=== PATIENT | female | born 1955 | race Caucasian/White ===

== ENCOUNTER → 2017-08-20 | Outpatient (CLI) | payer OTHER ==
[~2017-08-20] MED LIST: ADAL40KI SQ; ARIP30TA4 PO; ARIP5TAB13 PO; BUSP15TA PO; DEXL60CA2 PO; FOLI1TAB16 PO; LEVO100T5 PO; METF500T4 PO; METH2.5T25 PO; MONT10TA9 PO; QUET50TA PO
--- NOTE | 2017-08-21 08:24 | RAD ---
DATE: 08/20/2017 EXAM: DIGITAL SCREEN BILAT W/CAD HISTORY: Routine screening COMPARISON: 08/09/2016 This study was interpreted with the benefit of Computerized Aided Detection (CAD). The breast parenchyma shows scattered fibroglandular densities. Breast parenchyma level B. FINDINGS: No new or enlarging breast densities are seen. Scattered benign type calcifications are present. No suspicious microcalcifications have developed. IMPRESSION: Stable mammograms without evidence of malignancy. BI-RADS CATEGORY: 2 BENIGN FINDING(S) RECOMMENDED FOLLOW-UP: 12M 12 MONTH FOLLOW-UP PQRS compliance statement: Patient information was entered into a reminder system with a target due date for the next mammogram. Mammography is a sensitive method for finding small breast cancers, but it does not detect them all and is not a substitute for careful clinical examination. A negative mammogram does not negate a clinically suspicious finding and should not result in delay in biopsying a clinically suspicious abnormality. "Our facility is accredited by the [employer] Mammography Program."
== END | disposition home or self-care (01) ==
LOC: MAMMO 13:42
PROVIDERS: ATTEND Internal Medicine
DX: Z12.31 Encounter for screening mammogram for malignant neoplasm of breast (principal)
CPT/HCPCS: G0202; 77067

== ENCOUNTER → 2017-08-28 | Day surgery (SDC) | payer OTHER ==
[~2017-08-28] MED LIST changes: +ASEN10TA9 SL; +ATOR10TA60 PO; +HYDROmorphone 2 MG/ML VIAL IV PRN; +IV RINGERS,LACTATED 1000ML 1,000 ML IV SCH; +LIDOCAINE 1% PF 2 ML VIAL. ID PRN; +LORA0.5T PO; +LOSA100T6 PO; +MORPHINE SULFATE 2 MG/ML DISP.SYRIN. IV PRN; +ONDANSETRON PF 4 MG/2 ML VIAL. IV PRN; +PROCHLORPERAZINE 10 MG/2 ML VIAL. IV PRN; +PROPOFOL 20 ML IV ONE; +fentaNYL PF VIAL 100 MCG/2 ML VIAL IV PRN
--- NOTE | 2017-08-28 10:23 | PDOC1 ---
HISTORY & PHYSICAL H&P Atiya Reinoso [id number] 1955 07/17/2017 03:40 PM 10/22 [employer] [facility], [facility] OUR PATIENTS COME FIRST [address] [place], [place] [id number] Ph. [phone] Patient: Atiya Reinoso Date of : 1955 Date: 07/17/2017 3:40 PM Visit Type: Consult This 61 year old female presents for H/o colorectal polyp. History of Present Illness: 1. H/o colorectal polyp Prior screening: colonoscopy. Denies risk factors. Pertinent negatives include abdominal pain, change in bowel habits, change in stool caliber, constipation, decreased appetite, diarrhea, melena, nausea, rectal bleeding, vomiting, weight gain and weight loss. Additional information: No family history of colon cancer, No family history of Crohn's/colitis, No NSAID/ASA use and Last colonoscopy 4 yrs ago and had adenomatous polyps. INTAKE COMMENTS: Intake Comments: Nurse Note: the pt is here today to schedule a colonoscopy, she had colon polyps in 2013. PROBLEM LIST: Problem Description Onset Date Polyarthralgia 02/01/2016 Fatty liver 02/01/2016 Abnormal LFTs 12/01/2015 Diabetes mellitus 08/12/2012 Medicare advantage coverage 09/23/2013 Myalgia/myositis - multiple 06/15/2009 Asthma 08/12/2012 Psoriasis with arthropathy 06/15/2009 Psoriasis 06/15/2009 Low back pain 06/15/2009 Mononeuritis 06/15/2009 Tinnitus 06/15/2009 Disorder of hair AND/OR hair follicle 06/15/2009 Leukopenia 06/15/2009 Localized, primary osteoarthritis of the pelvic region and thigh 06/15/2009 Hyperlipidemia 06/15/2009 Acute bacterial sinusitis 12/01/2015 Elevated LFTs 12/01/2015 Midline low back pain without sciatica 10/05/2015 Tinea cruris 09/21/2014 History of colon polyps 04/04/2016 Gastroesophageal reflux disease 04/17/2012 Hypothyroidism 04/17/2012 Peptic ulcer 11/28/2013 Steatohepatitis 01/25/2016 PAST MEDICAL/SURGICAL HISTORY (Detailed) Disease/disorder Onset Date Management Date Comments Arthrocentesis of the left knee joint Anxiety Asthma Colonic polyps colonoscopy with biopsy 01/09/2014 Diabetes eardrum rupture ear surgery(left) 1995 Esophagitis Extensive diverticulosis Gastritis EGD with biopsy 01/09/2014 hiatal hernia Hyperlipidemia Hypertension nervous breakdowns Panic attacks Psoriasis Segmental colitis DIAGNOSTICS HISTORY: Test Ordered Interpretation Result completed UPPER GI ENDOSCOPY, BIOPSY 12/01/2013 Imp: Hiatal hernia. Ulceration, ileocecal valve. Antral erosive gastritis. Antral erosions. BX: Esophagitis. Reactive gastropathy. 01/09/2014 COLONOSCOPY AND BIOPSY 12/01/2013 Imp: Polyps, (bx). Extensive diverticulosis. Segmental colitis. BX: Acute ileitis. Hyperplastic polyp. Tubular adenoma. 01/09 Test Ordered Ordering Comments Modifier UPPER GI ENDOSCOPY, BIOPSY 12/01/2013 COLONOSCOPY AND BIOPSY 12/01/2013 Medications (Active): Started Medication Directions Instruction Stopped 09/13/2010 ALBUTEROL SULFATE 06/29/2017 ATORVASTATIN 10 MG TABLET TAKE 1 TABLET EVERY DAY 12/18/2016 BACTROBAN 2% CREAM APPLY A SMALL AMOUNT TO AFFECTED AREA 3 TIMES A DAY FOR 10 DAYS buspirone 15 mg tablet take 1 tablet by oral route 3 times every day 04/10/2017 [facility] VITAMIN E 400 UNIT CAPSULE TAKE ONE CAPSULE BY MOUTH TWICE A DAY 06/29/[address] 60 MG CAPSULE TAKE 1 CAPSULE BY MOUTH EVERY DAY 06/12/2017 Humira Pen 40 mg/0.8 mL subcutaneous INJECT 1 PEN (40MG) SUBCUTANEOUSLY EVERY OTHER WEEK 07/28/2016 hydrochlorothiazide 12.5 mg tablet take 1 tablet by oral route every day 06/01/2017 LEVOTHYROXINE 100 MCG TABLET TAKE 1 TABLET BY MOUTH EVERY DAY lorazepam 0.5 mg tablet take 1 tablet by ORAL route once as needed 07/09/2017 LOSARTAN POTASSIUM 100 MG TAB TAKE 1 TABLET BY MOUTH DAILY 03/30/2017 METFORMIN HCL 500 MG TABLET TAKE 1 TABLET BY MOUTH TWICE A DAY WITH MORNING AND EVENING MEALS 06/29/2017 MONTELUKAST SOD 10 MG TABLET TAKE 1 TABLET BY MOUTH EVERY DAY IN THE EVENING 09/21/2016 naproxen 500 mg tablet take 1 tablet by oral route 2 times every day with food 06/13/2016 [employer] Ultra Test strips CHECK BLOOD SUGARS ONCE A DAY FOR DIABETES (E11.9) Saphris [address] 1 tablet (10MG) by sublingual route 2 times every day under the tongue and allow to dissolve 06/12/2017 tizanidine 4 mg tablet take 1 tablet by oral route every 8 hours as needed not to exceed 3 doses in 24 hours 06/12/2017 tramadol 50 mg tablet take 1 tablet (50MG) by oral route every 4 - 6 hours as needed 10/05/2016 VENTOLIN HFA 90 MCG INHALER INHALE 2 PUFF BY INHALATION ROUTE EVERY 4 HOURS NEEDED Allergies: Ingredient Reaction Medication Name Comment PENICILLIN TETRACYCLINE Gastric Distress REVIEW OF SYSTEMS System Neg/Pos Details Constitutional Negative Chills, fever, malaise, weight gain and weight loss. ENMT Negative Sore throat. Eyes Negative Double vision. Respiratory Negative Dyspnea and wheezing. Cardio Negative Chest pain and irregular heartbeat/palpitations. GI Positive See HPI. GI Negative Abdominal pain, change in bowel habits, change in stool caliber, constipation, decreased appetite, diarrhea, melena, nausea, see HPI, rectal bleeding and vomiting. Negative Dysuria and hematuria. Endocrine Negative Cold intolerance and heat intolerance. Psych Negative Anxiety. Integumentary Negative Hives and rash. MS Negative Joint pain. Andrea/Lymph Negative Easy bleeding and easy bruising. Allergic/Immuno Negative Food allergies. VITAL SIGNS Time BP mm/Hg Pulse /min Resp /min Temp F Ht ft Ht in Ht cm Wt lb Wt kg BMI kg/ m2 BSA m2 O2 Sat% 3:42 PM 128/80 85 98.1 5.0 6.00 167.64 201.20 91.263 32.47 95 Time Measured by 3:42 PM Chelsea Sykes PHYSICAL EXAM: Exam Findings Details Constitutional Normal Well developed. Eyes Normal Conjunctiva - Right: Normal, Left: Normal. Sclera - Right: Normal, Left: Normal. Nasopharynx Normal Lips/teeth/gums - Normal. Neck Exam Normal Inspection - Normal. Thyroid gland - Normal. Respiratory Normal Inspection - Normal. Auscultation - Normal. Cardiovascular Normal Regular rate and rhythm. No murmurs, gallops, or rubs. Vascular Normal Pulses - Carotids: Normal, Femoral: Normal, Dorsalis pedis: Normal. Abdomen Normal Inspection - Normal. Anterior palpation - No guarding. No abdominal tenderness. No hepatic enlargement. No splenic enlargement. No hernia. No Ascites. Skin Normal Inspection - Normal. Extremity Normal No edema. Psychiatric Normal Oriented to time, place, person, and situation. Appropriate mood and effect. Assessment/Plan # Detail Type Description 1. Assessment history of colonic polyps (Z83.71). Patient Plan schedule colonoscopy at Plan Orders Further diagnostic evaluations ordered today include(s) Colonoscopy to be performed today. She is to schedule a follow-up visit with Lachelle Harris MD upon completion of work-up Clinical Guidelines (Reviewed, no changes:Last detailed document date:) Electronically signed by: Lachelle Harris MD 07/17/2017 03:51 PM Document generated by: Lachelle Harris 07/17/2017 03:51 PM Teressa Gavin MD, Family Practice; Joon Alegria MD Internal Medicine; Faisal Buck MD, Internal Medicine; Mo Harris MD Internal Medicine; Lachelle Harris MD, Gastroenterology; Baljinder Youngblood MD, Rheumatology, S. Raul Smith, Physical Medicine/Rehab JSuzanne Cartagena APRN ------ 08/28/17 Patient seen and examined. No change in H&P. LACHELLE HARRIS MD, PRAVIN N MD Aug 28, 2017 10:23
[2017-08-28 11:49] VITALS: BP 178/85
== END | disposition home or self-care (01) ==
LOC: ENDOS 09:35
PROVIDERS: ATTEND Internal Medicine Gastroenterology
DX: Z09 Encounter for follow-up examination after completed treatment for conditions other than malignant neoplasm (principal); Z87.19 Personal history of other diseases of the digestive system; K57.30 Diverticulosis of large intestine without perforation or abscess without bleeding; E11.9 Type 2 diabetes mellitus without complications; E03.9 Hypothyroidism, unspecified; F41.9 Anxiety disorder, unspecified; Z87.39 Personal history of other diseases of the musculoskeletal system and connective tissue; Z86.39 Personal history of other endocrine, nutritional and metabolic disease; Z88.1 Allergy status to other antibiotic agents; Z88.0 Allergy status to penicillin
CPT/HCPCS: 45378; J2704

== ENCOUNTER 2018-06-13 13:56 | Emergency (ER) | payer OTHER ==
[~2018-06-13] VITALS: Ht 167.6 cm; Wt 93.0 kg
[~2018-06-13 13:56] MED LIST changes: -HYDROmorphone 2 MG/ML VIAL IV PRN; -IV RINGERS,LACTATED 1000ML 1,000 ML IV SCH; -LIDOCAINE 1% PF 2 ML VIAL. ID PRN; -METF500T4 PO; +METF500T5 PO; -MORPHINE SULFATE 2 MG/ML DISP.SYRIN. IV PRN; -ONDANSETRON PF 4 MG/2 ML VIAL. IV PRN; -PROCHLORPERAZINE 10 MG/2 ML VIAL. IV PRN; -PROPOFOL 20 ML IV ONE; -fentaNYL PF VIAL 100 MCG/2 ML VIAL IV PRN
[2018-06-13 14:04] VITALS: BP 142/87
--- NOTE | 2018-06-13 14:38 | PHYS DOC ---
Past Medical History Past Medical History: Anxiety, Asthma, Bipolar, Diabetes-Type II, Hypertension , Schizophrenia, Other Additional Past Medical Histor: Bilateral Cataracts, Stage 3 OA Past Surgical History: Other Additional Past Surgical Histo: Left ear drum repair Alcohol Use: None Drug Use: None Adult General Chief Complaint Chief Complaint: LOWER EXT PAIN HPI HPI 62-year-old female presents to ER with complaints of increased left knee pain since yesterday. Patient has chronic bilateral knee pain due to osteoarthritis and was seen by her primary care physician last week. Patient reports yesterday she felt a pop in her knee and has had increased pain and feels her knee is more swollen today. Patient reports she took 2 tramadol this morning along with a muscle relaxer. Patient reports she's had minimal relief in pain with last tramadol approximately 30 minutes prior to arrival to ER. Patient denies numbness or tingling or discoloration in bilateral lower extremities. Pt denies any recent falls/injury. Patient reports she has 13 steps at home with her bathroom upstairs. She reports she has been able to go up and down the steps but does have more pain with walking them. Patient was seen with steady/unassisted gait from triage to room see in the express area of the ER. Review of Systems Review of Systems Constitutional: Denies fever or chills [] Eyes: Denies change in visual acuity, redness, or eye pain [] HENT: Denies nasal congestion or sore throat [] Respiratory: Denies cough or shortness of breath [] Cardiovascular: Denies CP/palpitations GI: Denies abdominal pain, nausea, vomiting, bloody stools or diarrhea [] : Denies dysuria or hematuria [] Musculoskeletal: Reports chronic lower back pain- no acute change in change in bowel/urinary patterns. Reports chronic bilat. knee pain- no acute change rt knee. Reports increased lt knee pain with concerns knee is swollen since yesterday. Denies numbness/tingling. Denies use of walker/cane for walking. Integument: Denies rash or skin lesions [] Neurologic: Denies headache, focal weakness or sensory changes [] All other systems were reviewed and found to be within normal limits, except as documented in this note. Current Medications Current Medications Current Medications Medications (Trade) Dose Ordered Sig/Arthur Start Time Stop Time Status Last Admin Dose Admin Ibuprofen (Motrin) 600 mg 1X ONCE 8/23/18 15:00 06/13/18 15:01 DC 06/13/18 15:10 600 MG Allergies Allergies Allergies Coded Allergies Type Severity Reaction Last Updated Verified Penicillins Allergy Intermediate Hives 08/28/17 Yes tetracycline Allergy Intermediate Unknown 08/28/17 Yes Physical Exam Physical Exam Constitutional: Well developed, well nourished, no acute distress, non-toxic appearance. [] HENT: Normocephalic, atraumatic, bilateral ears normal, mucous membranes pink/ moist no oral exudates, nose normal. [] Eyes: PERRLA, conjunctiva normal, no discharge. [] Neck: Normal range of motion, no tenderness, supple, no stridor. [] Cardiovascular:Heart rate regular rhythm, no murmur [] Lungs & Thorax: Bilateral breath sounds clear to auscultation [] Abdomen: Bowel sounds normal, soft, no tenderness, no masses, no pulsatile masses. [] Skin: Warm, dry, no erythema, no rash. [] Back: Tender to palp across lower back with no focal area- chronic per pt with no acute change, no CVA tenderness. [] Extremities: Diffuse tenderness on palp. bilat anterior patella- no swelling/ discoloration/palp. deformity, no cyanosis, no clubbing, ROM intact, no edema. [ ] Neurologic: Alert and oriented X 3, normal motor function, normal sensory function, no focal deficits noted. Steady/unassisted gait Psychologic: Affect normal, judgement normal, mood normal. [] Current Patient Data Vital Signs Vital Signs Date Time Temp Pulse Resp B/P (MAP) Pulse Ox O2 Delivery O2 Flow Rate FiO2 06/13/18 14:04 98.8 76 16 142/87 (105) 95 Room Air 98.8 EKG EKG [] Radiology/Procedures Radiology/Procedures EXAM: Left knee, 3 views. HISTORY: Pain. COMPARISON: None. FINDINGS: 3 views of the left knee are obtained. There is no fracture, dislocation or subluxation. There is mild tricompartmental spurring. IMPRESSION: Mild tricompartmental osteoarthritis of the left knee. Electronically signed by: Tatiana Escobar MD (06/13/2018 3:31 PM) [place] [id number] DICTATED and SIGNED BY: TATIANA ESCOBAR MD DATE: 06/13/18 1531 Course & Med Decision Making Course & Med Decision Making Pertinent Imaging studies reviewed. (See chart for details) On initial exam pt reports rt knee pain is chronic with no acute changes and with pt having previous xrays on rt knee no imaging ordered. 1545: Discussed xray results of lt knee with pt and her brother with findings consistent with pt's previous dx of osteoarthritis. She remains neuro/vascular intact in bilat. LEs with no change in skin condition. She is in no visible distress at this time. Discussed plans for carlos alberto wrap to bilat. knees for support. RICE acronym discussed. Pt to continue home meds as Rx'd including her Tramadol and muscle relaxers. Discussed f/u with orthopedics for further eval/ care and pt plans to call her PCP to find out their recommendations. Education provided on s&s to return to ER for and discharge instructions were discussed. Pt has steady/unassisted gait. She is agreeable with discharge plan as discussed. Dragon Disclaimer Dragon Disclaimer This electronic medical record was generated, in whole or in part, using a voice recognition dictation system. Departure Departure Impression: Primary Impression: Knee pain, bilateral Disposition: HOME, SELF-CARE Condition: STABLE Referrals: LIBBY WORLEY MD (PCP) SWEETIE POPE MD orthopedic doctor Patient Instructions: Elastic Bandage and RICE, Knee Pain, Bicp-on-Xhfe Additional Instructions: Continue your prescribed medications you have for chronic pain. As discussed you should follow-up with orthopedic doctor for for further care and evaluation. Follow-up with your primary doctor and further discuss pain management for recommendations on who they want you to see for further pain control. SAMMIE POST APRN Jun 13, 2018 14:38
[2018-06-13] MEDS: IBUPROFEN 600 MG TABLET. PO ONE (15:10)
--- NOTE | 2018-06-13 15:34 | RAD ---
EXAM: Left knee, 3 views. HISTORY: Pain. COMPARISON: None. FINDINGS: 3 views of the left knee are obtained. There is no fracture, dislocation or subluxation. There is mild tricompartmental spurring. IMPRESSION: Mild tricompartmental osteoarthritis of the left knee. Electronically signed by: Tatiana Pittman MD (06/13/2018 3:31 PM) [id number]
== END 2018-06-13 16:01 | disposition home or self-care (01) ==
LOC: ER 13:56
DX: M25.562 Pain in left knee (principal); M25.561 Pain in right knee; G89.29 Other chronic pain; M54.5 Low back pain; F41.9 Anxiety disorder, unspecified; J45.909 Unspecified asthma, uncomplicated; E11.9 Type 2 diabetes mellitus without complications; I10 Essential (primary) hypertension; F31.9 Bipolar disorder, unspecified; Z88.0 Allergy status to penicillin; Z88.1 Allergy status to other antibiotic agents
CPT/HCPCS: 73562; 99284

== ENCOUNTER → 2018-08-27 | Outpatient (CLI) | payer OTHER ==
[~2018-08-27] MED LIST changes: -LOSA100T6 PO; +LOSA100T7 PO; +METF500T16 PO; -METF500T5 PO
--- NOTE | 2018-08-28 09:13 | RAD ---
DATE: 08/27/2018 EXAM: MAMMO SHRUTHI SCREENING BILATERAL HISTORY: Routine screening COMPARISON: 08/20/2017 This study was interpreted with the benefit of Computerized Aided Detection (CAD). Breast Density: SCATTERED The breast parenchyma shows scattered fibroglandular densities. Breast parenchyma level B. FINDINGS: 2-D and 3-D tomosynthesis imaging was performed in CC and MLO projections. No new or enlarging breast densities are seen. Scattered benign type calcifications are present. No suspicious microcalcifications are evident. IMPRESSION: Stable mammograms without evidence of malignancy. BI-RADS CATEGORY: 2 BENIGN FINDING(S) RECOMMENDED FOLLOW-UP: 12M 12 MONTH FOLLOW-UP PQRS compliance statement: Patient information was entered into a reminder system with a target due date for the next mammogram. Mammography is a sensitive method for finding small breast cancers, but it does not detect them all and is not a substitute for careful clinical examination. A negative mammogram does not negate a clinically suspicious finding and should not result in delay in biopsying a clinically suspicious abnormality. "Our facility is accredited by the [employer] Mammography Program."
== END | disposition home or self-care (01) ==
LOC: MAMMO 12:06
PROVIDERS: ATTEND Internal Medicine
DX: Z12.31 Encounter for screening mammogram for malignant neoplasm of breast (principal)
CPT/HCPCS: 77063; 77067

== ENCOUNTER 2018-11-25 01:58 | Emergency (ER) | payer OTHER ==
[~2018-11-25] VITALS: Ht 167.6 cm; Wt 90.7 kg
[2018-11-25 01:58] VITALS: BP 171/87
[~2018-11-25 01:58] MED LIST changes: +LOSA100T14 PO; -LOSA100T7 PO; +MONT10TA49 PO; -MONT10TA9 PO
[2018-11-25] MEDS ORDERED: AZIT250T PO (02:58)
[2018-11-25] MEDS ORDERED: PROM118S9 PO (02:58)
--- NOTE | 2018-11-25 02:58 | PHYS DOC ---
Past Medical History Past Medical History: Anxiety, Asthma, Bipolar, Diabetes-Type II, Hypertension , Schizophrenia, Other Additional Past Medical Histor: Bilateral Cataracts, Stage 3 OA Past Surgical History: Other Additional Past Surgical Histo: Left ear drum repair Alcohol Use: None Drug Use: None Adult General Chief Complaint Chief Complaint: SHORTNESS OF BREATH HPI HPI Patient is a 63 year old female who presents with shortness of breath. She is been having cough and bronchitis symptoms for the past 3 days. Approximately 3 hours prior to arrival she developed wheezing which improved with her pro-air inhaler. She called ask a nurse and they advised her to come to the emergency department. Patient has been taking Mucinex with minimal relief for her cough symptoms. She also notes that she's had a sore throat. No fever. No leg swelling. Reports that she is feeling back to her normal self after using the pro-air metered-dose inhaler. Symptoms were moderate at worst.[] Review of Systems Review of Systems Constitutional: Denies fever or chills [] Eyes: Denies change in visual acuity, redness, or eye pain [] HENT: Denies nasal congestion, see history of present illness[] Respiratory: See history of present illness[] Cardiovascular: No S pain or palpitations[] GI: Denies abdominal pain, nausea, vomiting, bloody stools or diarrhea [] : Denies dysuria or hematuria [] Musculoskeletal: Denies back pain or joint pain [] Integument: Denies rash or skin lesions [] Neurologic: Denies headache, focal weakness or sensory changes [] Endocrine: Denies polyuria or polydipsia [] All other systems were reviewed and found to be within normal limits, except as documented in this note. Allergies Allergies Allergies Coded Allergies Type Severity Reaction Last Updated Verified Penicillins Allergy Intermediate Hives 08/28/17 Yes tetracycline Allergy Intermediate Unknown 08/28/17 Yes Physical Exam Physical Exam Constitutional: Well developed, well nourished, no acute distress, non-toxic appearance. [] HENT: Normocephalic, atraumatic, bilateral external ears normal, oropharynx moist, no oral exudates, nose normal. There is posterior pharyngeal streaking present. [] Eyes: PERRLA, EOMI, conjunctiva normal, no discharge. [] Neck: Normal range of motion, no tenderness, supple, no stridor. [] Cardiovascular:Heart rate regular rhythm, no murmur [] Lungs & Thorax: Bilateral breath sounds clear to auscultation [] Abdomen: Bowel sounds normal, soft, no tenderness, no masses, no pulsatile masses. [] Skin: Warm, dry, no erythema, no rash. [] Back: No tenderness, no CVA tenderness. [] Extremities: No tenderness, no cyanosis, no clubbing, ROM intact, no edema. [] Neurologic: Alert and oriented X 3, normal motor function, normal sensory function, no focal deficits noted. [] Psychologic: Affect normal, judgement normal, mood normal. [] Current Patient Data Vital Signs Vital Signs Date Time Temp Pulse Resp B/P (MAP) Pulse Ox O2 Delivery O2 Flow Rate FiO2 11/25/18 01:58 98.5 79 18 171/87 (115) 96 Room Air 98.5 EKG EKG [] Radiology/Procedures Radiology/Procedures [] Course & Med Decision Making Course & Med Decision Making Pertinent Labs and Imaging studies reviewed. (See chart for details) Medical decision making: Patient appears to have an upper respiratory infection triggering some bronchial spasm that resolved with her metered-dose inhaler of Pro Air. There is no wheezing present on exam. Patient is not hypoxic, no evidence of status asthmaticus. No evidence of pneumonia. We will attempt to do better job of cough control as an outpatient.[] Dragon Disclaimer Dragon Disclaimer This electronic medical record was generated, in whole or in part, using a voice recognition dictation system. Departure Departure Impression: Primary Impression: Upper respiratory infection Additional Impression: Bronchitis Disposition: HOME, SELF-CARE Condition: IMPROVED Referrals: LIBBY WORLEY MD (PCP) Follow-up in 2 days Patient Instructions: Acute Bronchitis, Upper Respiratory Infection, Adult Additional Instructions: Follow-up with your regular doctor in 2 days. Return to the ER if worsening difficulty breathing or any other concerns. Scripts Azithromycin (ZITHROMAX) 250 Mg Tablet 1 PKG PO UD, #6 TAB Prov: NICK MYERS DO 11/25/18 D-Methorphan Hb/Prometh Hcl (PROMETHAZINE-DM SYRUP) 118 Ml Syrup 5 ML PO PRN Q4HRS, #120 ML Prov: NICK MYERS DO 11/25/18 Problem Qualifiers Primary Impression: Upper respiratory infection URI type: unspecified URI Qualified Codes: J06.9 - Acute upper respiratory infection, unspecified NICK MYERS DO Nov 25, 2018 02:58
--- NOTE | 2018-11-25 06:51 | EKG ---
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 Electronically Signed On 11-25-2018 10:14:03 [employer] by Jamey Singh
== END 2018-11-25 03:00 | disposition home or self-care (01) ==
LOC: ER 01:58
DX: J40 Bronchitis, not specified as acute or chronic (principal); J06.9 Acute upper respiratory infection, unspecified; J45.909 Unspecified asthma, uncomplicated; I10 Essential (primary) hypertension; F31.9 Bipolar disorder, unspecified; E11.9 Type 2 diabetes mellitus without complications; F20.9 Schizophrenia, unspecified; F41.9 Anxiety disorder, unspecified; Z88.0 Allergy status to penicillin; Z88.1 Allergy status to other antibiotic agents
CPT/HCPCS: 93005; 99284-25

== ENCOUNTER → 2019-09-10 | Outpatient (CLI) | payer OTHER ==
[~2019-09-10] MED LIST changes: +AZIT250T PO; +PROM118S9 PO
--- NOTE | 2019-09-11 17:17 | RAD ---
DATE: 09/10/2019. EXAM: MAMMO SHRUTHI SCREENING BILATERAL. HISTORY: Routine mammographic screening. COMPARISON: 08/27/2018. This study was interpreted with the benefit of Computerized Aided Detection (CAD). FINDINGS: Breast Density: SCATTERED The breast parenchyma shows scattered fibroglandular densities. Breast parenchyma level B.. Scattered and coarse calcifications are benign. A few small nodules are stable. There are no suspicious masses, microcalcifications or architectural distortion. The parenchymal pattern is stable. BI-RADS CATEGORY: 2 BENIGN FINDING(S). RECOMMENDED FOLLOW-UP: 12M 12 MONTH FOLLOW-UP. PQRS compliance statement: Patient information was entered into a reminder system with a target due date 09/10/2020 for the next mammogram. Mammography is a sensitive method for finding small breast cancers, but it does not detect them all and is not a substitute for careful clinical examination. A negative mammogram does not negate a clinically suspicious finding and should not result in delay in biopsying a clinically suspicious abnormality. "Our facility is accredited by the [employer] Mammography Program."
== END | disposition home or self-care (01) ==
LOC: MAMMO 10:49
PROVIDERS: ATTEND Internal Medicine
DX: Z12.31 Encounter for screening mammogram for malignant neoplasm of breast (principal); N64.89 Other specified disorders of breast; N63.20 Unspecified lump in the left breast, unspecified quadrant; N63.10 Unspecified lump in the right breast, unspecified quadrant
CPT/HCPCS: 77063; 77067

== ENCOUNTER → 2020-10-27 | Outpatient (CLI) | payer MEDICARE ==
[~2020-10-27] MED LIST changes: +ALBU0.63 NEB; +AMLO-186 PO; +POTA10TA12 PO; +PROM118S10 PO; -PROM118S9 PO; +VITA25006 PO; +VITA400T6 PO
--- NOTE | 2020-10-27 12:53 | PDOC1 ---
INITIAL PAIN CONSULT DATE OF SERVICE: DOS: DATE: 10/27/20 TIME: 12:47 CHIEF COMPLAINT: Chief Complaint: Low back and bilateral lower extremity pain HISTORY OF PRESENT ILLNESS: 65-year-old female presents with history of pain low back bilateral lower extremities for about 10 years or more. Patient reports is not the result of any specific injury or accident that she is aware of but getting worse over time in the low back and the bilateral lower extremities with radiating pain in the posterior gluteus and posterior lateral thighs patient reports is worse with walking standing especially standing in one place for more than about 10 minutes patient reports she has to bend forward to decrease the pain while she is walking. Patient reports the pain is sharp and shooting intermittent intensity worse with standing walking better with sitting or laying down generally does not awaken her from sleep at night does not affect her bowel bladder control but does affect her ability to walk significantly though she is not use any assistive devices to ambulate. Patient has had physical therapy as well as exercise and she is currently doing that at home physical therapy 3 [facility] physical therapies and it was not significantly helpful although she still doing exercises stretching and walking daily at home. Patient is taking tramadol twice daily she is also tried Advil Tylenol which do help to a mild extent the tramadol does take some of the edge off he still has trouble standing for any period longer than 10 minutes and walking. Patient reports a disability rating 0-10 10 being the worst is an 8 with him home responsibilities 9 with recreation 10 with social activity 7 with occupational activity 6 with self-care activities and 0 with life support activities. She has not had any diagnostic studies currently and we will order MRI scan for her today to better differentiate her radicular pain. PAST MEDICAL HISTORY: PMH: Hypertension, type 2 diabetes, hypothyroidism, asthma, fatty liver, gastroesophageal reflux, anxiety and panic attacks, polyarthralgia, psoriasis PREVIOUS SURGERIES: Past Surgical Hx: Left tympanic ear surgery with skin graft CURRENT MEDICATIONS: Current Meds: Active Scripts Medications Dose Route/Sig Max Daily Dose Days Date Category Noxifol-D3 2,500 Unit-1 mg Tab (Vitamin D3/Folic Acid) 2,500 Unit Tablet 2 Tab PO DAILY 30 10/27/20 Reported Albuterol Sulfate Neb Soln (Albuterol Sulfate) 0.63 Mg/3 Ml Vial.neb Unknown Dose NEB PRN Q4HRS PRN 10/27/20 Reported Amlodipine Besylate 5 Mg Tablet 5 Mg PO DAILY 10/27/20 Reported Klor-Con 10 (Potassium Chloride) 10 Meq Tablet.er 1 Tab PO DAILY 30 10/27/20 Reported Vitamin E (Vitamin E Mixed) 400 Unit Tablet 1 Tab PO QHS 30 10/27/20 Reported Losartan Potassium 100 Mg Tablet 100 Mg PO DAILY 08/28/17 Reported Saphris (Asenapine Maleate) 10 Mg Tab.subl 1 Tab SL QHS 08/28/17 Reported Montelukast Sodium Tablet (Montelukast Sodium) 10 Mg Tablet 10 Mg PO HS 01/09/14 Reported Levothyroxine Sodium 100 Mcg Tablet 50 Mcg PO DAILY 01/09/14 Reported Humira (Adalimumab) 40 Mg/0.8 Ml Kit 40 Mg SQ Q2WKS 01/09/14 Reported Buspirone Hcl 15 Mg Tablet 15 Mg PO Q6HRS 01/09/14 Reported ALLERGIES; Allergies: Coded Allergies: Penicillins (Verified Allergy, Intermediate, Hives, 08/28/17) tetracycline (Verified Allergy, Intermediate, Unknown, 08/28/17) FAMILY HISTORY: Family Hx: Heart disease and diabetes SOCIAL HISTORY: Social Hx: Patient does not clary alcohol does not smoke does not use any illegal illicit recreational drugs is single lives locally in [facility] works at [employer] part-time REVIEW OF SYSTEMS: ROS: Positive for those items mentioned in history of present illness, all systems are reviewed, otherwise negative, is complete full and well-documented on patient's chart PHYSICAL EXAM: VS: Blood pressure is 148/89 pulse 81 respirations 16 temperature is 98.8 F height is 5 feet 5 inches weight is 212 pounds PE: PHYSICAL EXAMINATION: GENERAL: The patient is awake, alert, oriented, appropriate, very pleasant demeanor HEENT: Shows normocephalic, atraumatic. Extraocular movements are intact and symmetrical. Oral cavity: Mucous membranes moist and pink. Dentition is intact. NECK: Shows anterior throat supple without palpable lymphadenopathy noted. Swallow reflex symmetrical. CHEST: Shows normal on inspection. Breath sounds are clear bilaterally, no rales rhonchi wheezes auscultated. HEART: Shows S1, S2 clear. No murmurs auscultated. ABDOMEN: Soft, nontender, nondistended, obese. No palpable organomegaly is noted. No rebound or guarding demonstrated. BACK: Shows spine grossly in the midline. Normal-appearing cervical lordotic curvature. There is increased thoracic kyphosis, some flattening of the lumbar lordotic curvature. Lumbar paraspinous muscles show symmetrical on inspection, on palpation shows some moderate tenderness diffusely throughout the upper, middle and lower distribution of the paraspinous muscles bilaterally and also into the lower thoracic paraspinous musculature, firm and tender, but without specific trigger points, without radiation of pain. The patient has good rotational motion of the lumbar spine, both laterally as well as extension and flexion without significant difficulty. No tenderness over the spinous processes, sacrum or sacroiliac regions. EXTREMITIES: Lower extremities show deep tendon reflexes 1+ in the patellar and tendo calcaneus tendons. Motor exam is 5 on a scale of 5 with right dorsiflexio n, extension, quadriceps and hamstring flexion and 5/5 on the left. Peripheral pulses are 1+ posterior tibial. No peripheral edema is noted bilaterally. Lower extremities are warm and dry to touch, equal in color and appearance. Straight leg raise noted to be positive bilaterally at approximately 35 to 40 degrees decreased with knee flexion. Gaenslen's and Gerardo's maneuvers are negative bilaterally. The patient is able to stand, stand on her toes without significant difficulty or loss of balance walks with a normal-appearing gait for short distance in the office today not using any assistive devices to ambulate.. SKIN: Shows warm and dry, good turgor. No edema. No sores, rashes or bruising throughout. IMPRESSION: Impression: 65-year-old female with long history low back pain bilateral lower extremity pain in a radicular fashion following an L4-5 dermatomal distribution. Hypertension Diabetes Asthma Plan: Options were discussed with the patient including conservative medical management continued physical therapies and interventional techniques. Patient elects interventional techniques. We discussed a lumbar epidural steroid injection using description as well as anatomical model to describe the procedure. Patient would like to proceed we will wait for preauthorization with insurance provider and plan on translaminar L4-5 level lumbar epidural steroid injection at that time. MRI scan will be obtained as well pending preauthorization. Patient return to clinic once preauthorization is obtained. CHRISSIE CARABALLO MD Oct 27, 2020 12:53
== END | disposition home or self-care (01) ==
LOC: PNCL 11:13
PROVIDERS: ATTEND Anesthesiology
DX: M54.5 Low back pain (principal); M79.605 Pain in left leg; M79.604 Pain in right leg; I10 Essential (primary) hypertension; E11.9 Type 2 diabetes mellitus without complications; E03.9 Hypothyroidism, unspecified; J45.909 Unspecified asthma, uncomplicated; K21.9 Gastro-esophageal reflux disease without esophagitis; F41.9 Anxiety disorder, unspecified; M19.90 Unspecified osteoarthritis, unspecified site; Z79.82 Long term (current) use of aspirin; Z79.84 Long term (current) use of oral hypoglycemic drugs; Z79.899 Other long term (current) drug therapy; Z98.890 Other specified postprocedural states; Z82.49 Family history of ischemic heart disease and other diseases of the circulatory system; Z83.3 Family history of diabetes mellitus; Z88.0 Allergy status to penicillin; Z88.1 Allergy status to other antibiotic agents
CPT/HCPCS: G0463

== ENCOUNTER → 2020-11-03 | Outpatient (CLI) | payer MEDICARE ==
--- NOTE | 2020-11-03 13:19 | KCIC ---
Orbits radiograph 11/03/2020 1:08 PM INDICATION: Foreign body COMPARISON: None available TECHNIQUE: 2 images of the orbits provided. FINDINGS: No radiopaque foreign density is identified in the orbits. No acute fracture is identified. Visualize d paranasal sinuses appear well aerated. IMPRESSION: No radiopaque foreign density is identified. Electronically signed by: Elsa West MD (11/03/2020 1:17 PM) [id number]
--- NOTE | 2020-11-03 15:06 | KCIC ---
EXAMINATION: Magnetic resonance imaging (MRI) of the lumbar spine without contrast 11/03/2020 12:55 PM HISTORY: Bilateral lumbar radiculopathy TECHNIQUE: Multiplanar multi-weighted MRI of the lumbar spine was performed without intravenous contr ast using the standard lumbar spine protocol. Contrast information: None administered. COMPARISON: None available. FINDINGS: There is levoconvex curvature of the lumbar spine with apex dextrocurvature at L2-L3. There is minima l retrolisthesis of L2 on L3 and anterolisthesis of L3 on L4. Vertebral bodies demonstrate normal sig nal intensity on all sequences. There are no compression fractures. The conus medullaris terminates at the level of L1. The distal spinal cord signal intensity is normal. There is moderate disc heigh t loss at L5-S1. There is disc desiccation at all levels sparing of L2-3 through L5-S1. Modic type II endplate degenerative changes are identified at L5-S1. Limited views of the abdomen and pelvis show no soft tissue abnormality. The aorta is normal. L1-L2: There is disc bulge asymmetric to the left. Mild left facet arthropathy. No neuroforaminal or spinal canal stenosis. L2-L3: There is a circumferential disc bulge with left far lateral disc protrusion. Mild facet arthro alex. Mild left neuroforaminal stenosis. No spinal canal stenosis. L3-L4: There is a circumferential disc bulge with left foraminal disc protrusion. Moderate left and m oderate facet arthropathy. Mild to moderate left neuroforaminal stenosis. Is left lateral recess sten osis. There is moderate spinal canal stenosis, exacerbated by epidural lipomatosis. L4-L5: There is a disc bulge with right far lateral disc protrusion. Mild facet arthropathy. No neuro foraminal or spinal canal stenosis. L5-S1: There is a circumferential disc bulge asymmetric to the left. Mild to moderate facet arthropat hy, left or the right. Mild to moderate left neuroforaminal stenosis. No spinal canal stenosis. IMPRESSION: Mild degenerative changes of the lumbar spine as described in detail above. Electronically signed by: Elsa West MD (11/03/2020 3:04 PM) [id number]
== END | disposition home or self-care (01) ==
LOC: KCIC MRI 12:38
PROVIDERS: ATTEND Anesthesiology
DX: M47.26 Other spondylosis with radiculopathy, lumbar region (principal); E11.9 Type 2 diabetes mellitus without complications; E03.9 Hypothyroidism, unspecified; M19.90 Unspecified osteoarthritis, unspecified site; J45.909 Unspecified asthma, uncomplicated; F41.9 Anxiety disorder, unspecified; Z79.899 Other long term (current) drug therapy; Z88.0 Allergy status to penicillin; Z88.1 Allergy status to other antibiotic agents
CPT/HCPCS: 70030; 72148

== ENCOUNTER → 2020-12-01 | Outpatient (CLI) | payer MEDICARE ==
[2020-12-01 16:25] LABS: BASO % 0 % (0-3); EOS # 0.1 x10^3/uL (0.0-0.7); EOS % 1 % (0-3); HEMATOCRIT 44.3 % (36.0-47.0); HEMOGLOBIN 15.1 g/dL (12.0-15.5); LYMPH # 1.6 x10^3/uL (1.0-4.8); LYMPH % 25 % (24-48); MEAN CORPUSCULAR HEMOGLOBIN 32 pg (25-35); MEAN CORPUSCULAR HGB CONC 34 g/dL (31-37); MEAN CORPUSCULAR VOLUME 92 fL (79-100); MONO # 0.7 x10^3/uL (0.0-1.1); MONO % 11 % (0-9); NEUT # 3.9 x10^3/uL (1.8-7.7); NEUT % 62 % (31-73); PLATELET COUNT 214 x10^3/uL (140-400); RED CELL DISTRIBUTION WIDTH 13.2 % (11.5-14.5); WHITE BLOOD COUNT 6.3 x10^3/uL (4.0-11.0)
[2020-12-03 09:21] LABS: ANTI-DS DNA 29 IU/mL (0-9)
[2020-12-03 14:12] LABS: C ANCA <1:20 titer (Neg:<1:20); P ANCA <1:20 titer (Neg:<1:20)
[2020-12-03 19:09] LABS: ANA INTERP Positive (.)
== END ==
LOC: ONCLAB 15:02
PROVIDERS: ATTEND Internal Medicine Hematology & Oncology
DX: R21 Rash and other nonspecific skin eruption (principal); E11.9 Type 2 diabetes mellitus without complications; B20 Human immunodeficiency virus [HIV] disease
CPT/HCPCS: 36415; 84443; 85025; 85610; 86038; 86140; 86162; 86255; 86256; 86703; 86705; 86709; 86803; 87340

== ENCOUNTER → 2020-12-10 | Outpatient (CLI) | payer MEDICARE ==
--- NOTE | 2020-12-10 17:03 | RAD ---
EXAM: Pelvic ultrasound HISTORY: Pelvic pain, postmenopausal bleeding, uterine fibroids. COMPARISON: None. FINDINGS: Sonographic evaluation of the pelvis was performed transabdominally and transvaginally. The uterus is anteverted and measures 4.5 x 2.8 x 2.7 cm. The endometrial stripe measures 4 mm. No cl ear masses are identified. There is no significant free fluid. Neither ovary could be visualized currently. A small echogenic nodule is noted in the endocervical ca nal measuring 3 x 1.5 mm. Small cysts are noted along the endocervix. There are no suspicious lesions . IMPRESSION: 1. 3 mm polyp versus debris within the endocervical canal. Hysteroscopy could further evaluate if the re is persistent concern. 2. Endometrial thickness at the upper limits of normal in a postmenopausal patient. Recommend ongoing follow-up for postmenopausal bleeding. 3. Neither ovary could be visualized currently. Electronically signed by: Radha Arteaga MD (12/10/2020 5:01 PM) [id number]
== END ==
LOC: US 08:09
PROVIDERS: ATTEND Internal Medicine
DX: N88.8 Other specified noninflammatory disorders of cervix uteri (principal); N83.8 Other noninflammatory disorders of ovary, fallopian tube and broad ligament; R10.2 Pelvic and perineal pain; D25.9 Leiomyoma of uterus, unspecified; N95.0 Postmenopausal bleeding; N83.209 Unspecified ovarian cyst, unspecified side
CPT/HCPCS: 76830; 76856

== ENCOUNTER → 2021-01-25 | Outpatient (CLI) | payer MEDICARE ==
--- NOTE | 2021-01-25 17:16 | RAD ---
BILATERAL SCREENING MAMMOGRAM, 3-D History: Routine screening. Comparison: Bilateral mammogram September 10, 2019 and prior years. Technique: MLO and CC digital tomosynthesis (3D) images obtained. Radiologist reviewed these images on dedicated workstation. Findings: Breast Tissue Density B : There are scattered areas of fibroglandular density. There are multiple bilateral benign calcifications. There are no dominant masses, suspicious microcalcifications or architectural distortion. IMPRESSION: No mammographic evidence of malignancy. Recommend routine screening. BI-RADS category 2: Benign findings. The images were reviewed with computer-aided detection. Patient information is entered into reminder system with a target due date for the next screening pura mogram. Mammography is the most sensitive method for finding small breast cancers, but it does not detect the m all and is not a substitute for careful clinical examination. A negative mammogram does not negate a clinically suspicious finding and should not result in delay in biopsying a clinically suspicious a bnormality. "Our facility is accredited by the [employer] Mammography Program." Electronically signed by: Placido Allen MD (01/25/2021 5:14 PM) [email or web address]
== END ==
LOC: MAMMO 11:10
PROVIDERS: ATTEND Internal Medicine
DX: Z12.31 Encounter for screening mammogram for malignant neoplasm of breast (principal); N64.89 Other specified disorders of breast
CPT/HCPCS: 77063; 77067

== ENCOUNTER 2021-08-19 11:19 | Emergency (ER) | payer MEDICARE ==
[~2021-08-19] VITALS: Ht 165.1 cm; Wt 86.3 kg
[~2021-08-19 11:19] MED LIST changes: -QUET50TA PO; +QUET50TA3 PO
[2021-08-19] MEDS ORDERED: IV NORMAL SALINE 1000ML BAG 1,000 ML IV ONE (12:00)
[2021-08-19 12:25] LABS: BASO # 0.1 x10^3/uL (0.0-0.2); BASO % 1 % (0-3); EOS # 0.1 x10^3/uL (0.0-0.7); EOS % 2 % (0-3); HEMATOCRIT 43.1 % (36.0-47.0); HEMOGLOBIN 14.7 g/dL (12.0-15.5); LYMPH # 1.9 x10^3/uL (1.0-4.8); LYMPH % 20 % (24-48); MEAN CORPUSCULAR HEMOGLOBIN 31 pg (25-35); MEAN CORPUSCULAR HGB CONC 34 g/dL (31-37); MEAN CORPUSCULAR VOLUME 92 fL (79-100); MONO # 0.9 x10^3/uL (0.0-1.1); MONO % 10 % (0-9); NEUT # 6.6 x10^3/uL (1.8-7.7); NEUT % 69 % (31-73); PLATELET COUNT 265 x10^3/uL (140-400); RED BLOOD COUNT 4.69 x10^6/uL (3.50-5.40); RED CELL DISTRIBUTION WIDTH 13.3 % (11.5-14.5); WHITE BLOOD COUNT 9.6 x10^3/uL (4.0-11.0)
[2021-08-19 12:31] LABS: CALCIUM 9.4 mg/dL (8.5-10.1); CREATININE 0.6 mg/dL (0.6-1.0); GFR 99.7; POTASSIUM 4.7 mmol/L (3.5-5.1)
[2021-08-19 12:45] LABS: ALBUMIN 4.2 g/dL (3.4-5.0); ALBUMIN/GLOBULIN RATIO 1.4 (1.0-1.7); TOTAL BILIRUBIN 0.4 mg/dL (0.2-1.0); TOTAL PROTEIN 7.3 g/dL (6.4-8.2)
[2021-08-19 13:11] VITALS: BP 136/68
--- NOTE | 2021-08-19 13:12 | PHYS DOC ---
Past Medical History Past Medical History: Anxiety, Asthma, Bipolar, Diabetes-Type II, Hypertension, Schizophrenia, Other Additional Past Medical Histor: Bilateral Cataracts, Stage 3 OA Past Surgical History: Other Additional Past Surgical Histo: Left ear drum repair Smoking Status: Never Smoker Alcohol Use: None Drug Use: None General Adult EDM: Chief Complaint: DIZZY/LIGHT HEADED HPI: HPI: Patient is a 65 year old female who presents with dizziness and near syncope since yesterday. Patient states that she had to take her dog to the emergency cardiopulmonary technologist chief when her symptoms began. She states that she felt as if she was going to pass out and was nauseated, so she went to lay in bed. She took Mylanta at home. She reports that movement worsens her symptoms. Initially, she waited yesterday and this morning to see if it would get better, but it did not. She also reports associated racing heartbeat for the past 2 months. Patient has a history of high blood pressure, diabetes, high cholesterol, schizophrenia and anxiety. Patient denies history of coronary artery disease or prior NV. Patient has no other complaints at this time. Review of Systems: Review of Systems: Constitutional: Denies fever or chills. Eyes: Denies change in visual acuity. HENT: Denies nasal congestion or sore throat. Respiratory: Denies cough or shortness of breath. Cardiovascular: Denies chest pain or edema. GI: See HPI : Denies dysuria or hematuria. Neurologic: See HPI Endocrine: Denies polyuria or polydipsia. Heart Score: C/O Chest Pain: No Current Medications: Current Medications Medications (Trade) Dose Ordered Sig/Arthur Start Time Stop Time Status Last Admin Dose Admin Sodium Chloride 1,000 ml @ 1,000 mls/hr 1X ONCE 08/19/21 12:00 08/19/21 12:59 08/19/21 12:30 1,000 MLS/HR Allergies: Allergies: Allergies Coded Allergies Type Severity Reaction Last Updated Verified Penicillins Allergy Intermediate Hives 08/28/17 Yes tetracycline Allergy Intermediate Unknown 08/28/17 Yes Physical Exam: PE: Constitutional: Well developed, well nourished, no acute distress, non-toxic appearance. HENT: Normocephalic, atraumatic, bilateral external ears normal, oropharynx moist, no oral exudates, nose normal. [place]-Hallpike negative. Eyes: PERRLA, EOMI, conjunctiva normal, no discharge. Neck: Normal range of motion, no tenderness, no stridor. Cardiovascular: Heart rate regular rhythm, no murmur. Lungs & Thorax: Bilateral breath sounds clear to auscultation. Abdomen: Bowel sounds normal, soft, no tenderness, no masses, no pulsatile masses. Skin: Warm, dry, no erythema, no rash. Back: No tenderness, no CVA tenderness. Extremities: No tenderness, no cyanosis, no clubbing, ROM intact, no edema. Neurologic: Alert and oriented x3, normal motor function, normal sensory function, no focal deficits noted. Current Patient Data: Labs: Laboratory Tests Test 08/19/21 12:00 White Blood Count 9.6 x10^3/uL (4.0-11.0) Red Blood Count 4.69 x10^6/uL (3.50-5.40) Hemoglobin 14.7 g/dL (12.0-15.5) Hematocrit 43.1 % (36.0-47.0) Mean Corpuscular Volume 92 fL (79-100) Mean Corpuscular Hemoglobin 31 pg (25-35) Mean Corpuscular Hemoglobin Concent 34 g/dL (31-37) Red Cell Distribution Width 13.3 % (11.5-14.5) Platelet Count 265 x10^3/uL (140-400) Neutrophils (%) (Auto) 69 % (31-73) Lymphocytes (%) (Auto) 20 % (24-48) L Monocytes (%) (Auto) 10 % (0-9) H Eosinophils (%) (Auto) 2 % (0-3) Basophils (%) (Auto) 1 % (0-3) Neutrophils # (Auto) 6.6 x10^3/uL (1.8-7.7) Lymphocytes # (Auto) 1.9 x10^3/uL (1.0-4.8) Monocytes # (Auto) 0.9 x10^3/uL (0.0-1.1) Eosinophils # (Auto) 0.1 x10^3/uL (0.0-0.7) Basophils # (Auto) 0.1 x10^3/uL (0.0-0.2) Platelet Estimate Pending Sodium Level 136 mmol/L (136-145) Potassium Level 4.7 mmol/L (3.5-5.1) Chloride Level 99 mmol/L (98-107) Carbon Dioxide Level 28 mmol/L (21-32) Anion Gap 9 (6-14) Blood Urea Nitrogen 15 mg/dL (7-20) Creatinine 0.6 mg/dL (0.6-1.0) Estimated GFR (Cockcroft-Gault) 99.7 BUN/Creatinine Ratio 25 (6-20) H Glucose Level 117 mg/dL (70-99) H Calcium Level 9.4 mg/dL (8.5-10.1) Total Bilirubin 0.4 mg/dL (0.2-1.0) Aspartate Amino Transferase (AST) 19 U/L (15-37) Alanine Aminotransferase (ALT) 27 U/L (14-59) Alkaline Phosphatase 55 U/L (46-116) Troponin I High Sensitivity 6 ng/L (4-50) Total Protein 7.3 g/dL (6.4-8.2) Albumin 4.2 g/dL (3.4-5.0) Albumin/Globulin Ratio 1.4 (1.0-1.7) Laboratory Tests 08/19/21 12:00 Laboratory Tests 08/19/21 12:00 Vital Signs: Vital Signs Date Time Temp Pulse Resp B/P (MAP) Pulse Ox O2 Delivery O2 Flow Rate FiO2 08/19/21 11:44 98.3 69 20 168/86 (113) 97 Room Air 98.3 Orthostatics Supine: 168/86, 69bpm Sittin/82, 69bpm Standin/82, 80bpm Standing 1m: 155/80, 82bpm EKG: EKG: EKG Interpreted by Dr. Dr. Obrien at 1157: Regular rate and rhythm 74 bpm with no ectopic beats. No concerning ST-T wave changes. Regular QR interval. Course & Med Decision Making: Course & Med Decision Making Pertinent Labs and Imaging studies reviewed. (See chart for details) Patient will be worked up for near syncope. EKG and labs unremarkable. Findings are discussed with the patient and her family at bedside. Patient states that her symptoms are much improved after fluid administration. Patient was advised to keep her appoint with her primary care doctor, and to follow-up today to let them know she was seen in the emergency department. Patient instructed to stay hydrated and not to move around the house too quickly. Patient advised to return to the emergency department if she feels unsafe or that she cannot care for herself at home. Family at bedside states that her symptoms were likely due to being extremely anxious and "worked up" about her dog yesterday morning. Patient given return precautions for worsening symptoms or any syncopal events. Patient and family understand and are agreeable to discharge plan. Dragon Disclaimer: Dragon Disclaimer: This electronic medical record was generated, in whole or in part, using a voice recognition dictation system. Departure Departure Impression: Primary Impression: Near syncope Additional Impression: Anxiety attack Disposition: HOME / SELF CARE / HOMELESS Condition: STABLE Referrals: LIBBY WORLEY MD (PCP) Patient Instructions: Near-Syncope, [id number] Additional Instructions: As discussed, there were no alarming abnormalities in your work-up here in the emergency department. Follow-up with your primary care provider soon as possible. If you have worsening symptoms, develop new symptoms, or feel unsafe at home, please return to the emergency department. JEWELL KNOTT Aug 19, 2021 13:12
[2021-08-19 14:38] LABS: ANISOCYTOSIS PRESENT; PLT ESTIMATE ADEQUATE (ADEQUATE)
--- NOTE | 2021-08-19 15:59 | EKG ---
[facility] [address] [place] [address] Test Date: 2021-08-19 Test Time: 11:40:29 Pat Name: LAURIE GALDAMEZ Department: Room: Gender: F [employer]: : 1955 Requested By: JEWELL KNOTT Order Number: [id number] Reading MD: Ankit Peterson Measurements Intervals [place] Rate: 74 P: 56 NM: 180 QRS: 15 QRSD: 72 T: 51 QT: 364 QTc: 409 Interpretive Statements SINUS RHYTHM Electronically Signed On 08-21-2021 13:31:00 CDT by Ankit Peterson
[2021-08-31] MEDS ORDERED: [UNRECOGNIZED DRUG - CODE] TD (10:00)
[2021-08-31] MEDS ORDERED: TRAM50TA PO (10:00)
[2021-08-31] MEDS ORDERED: IXEK80SY3 SQ (10:00)
[2021-08-31] MEDS ORDERED: DICL112S2 TP (10:00)
== END 2021-08-19 13:53 | disposition home or self-care (01) ==
LOC: ER 11:19
DX: R55 Syncope and collapse (principal); F41.9 Anxiety disorder, unspecified; J45.909 Unspecified asthma, uncomplicated; F31.9 Bipolar disorder, unspecified; E11.9 Type 2 diabetes mellitus without complications; I10 Essential (primary) hypertension; E78.00 Pure hypercholesterolemia, unspecified; F20.9 Schizophrenia, unspecified; Z88.0 Allergy status to penicillin; Z88.1 Allergy status to other antibiotic agents
CPT/HCPCS: 36415; 80053; 84484; 85025; 93005; 96360; 99284; J7030

== ENCOUNTER → 2021-08-31 | Outpatient (CLI) | payer MEDICARE ==
[2021-08-19 13:11] VITALS: BP 136/68
[~2021-08-31] MED LIST changes: +DICL112S2 TP; +IXEK80SY3 SQ; +TRAM50TA PO; +[UNRECOGNIZED DRUG - CODE] TD
--- NOTE | 2021-08-31 09:43 | PDOC ---
Progress Note - Pain Clinic Date of Service: DOS: DATE: 08/31/21 TIME: 09:37 Diagnosis: Dx: Lumbar radiculopathy with lumbar degenerative disc Left shoulder joint pain History or Present Illness: HPI: 65-year-old female returns after evaluation October 27, 2020. Ordered a MRI scan which was performed on November 03 showing L4-4 slight retrodisc bulge with left foraminal disc protrusion moderate left moderate facet arthropathy mild to moderate left neuroforaminal stenosis and left lateral recess stenosis L4-5 with disc bulge with far right lateral disc protrusion L5-S1 showing sequential disc bulge asymmetric to the left. These results were discussed in detail with the patient today. Patient reports still significant pain in the low back and bilateral lower extremities posterior gluteus lateral thigh anterior thigh medial thighs right essentially equal to left but somewhat worse on the left side recently patient reports she was doing physical therapy and injured her left shoulder during the therapy session with significant pain in the left shoulder since that time. Patient has seen her primary care physician who gave her some exercises and rotation of motion to do and she has been doing this but still significant pain in the left shoulder. Patient wishes to wait on any oth er treatments until her shoulder is feeling better. Physical Exam: VS: Blood pressure is 142/82 pulse 71 respirations 18 temperature is 98.4 F height is 5 foot 6 inches weight is 201 pounds PE: PHYSICAL EXAMINATION: GENERAL: The patient is awake, alert, oriented, appropriate, very pleasant in demeanor HEENT: Shows normocephalic, atraumatic. Extraocular movements are intact and symmetrical. Oral cavity: Mucous membranes moist and pink. NECK: Shows anterior throat supple without palpable lymphadenopathy noted. Swallow reflex symmetrical. CHEST: Shows normal on inspection. Breath sounds are clear bilaterally, no rales rhonchi wheezes auscultated. HEART: Shows S1, S2 clear. No murmurs auscultated. ABDOMEN: Soft, nontender, nondistended, obese. No palpable organomegaly is noted. No rebound or guarding demonstrated. BACK: Shows spine grossly in the midline. Normal-appearing cervical lordotic curvature. There is slightly increased thoracic kyphosis, some minor flattening of the lumbar lordotic curvature. Lumbar paraspinous muscles show symmetrical on inspection, on palpation shows some moderate tenderness diffusely throughout the upper, middle and lower distribution of the paraspinous muscles, but without specific trigger points, without radiation of pain. The patient has good rotational motion of the lumbar spine, both laterally as well as extension and flexion without significant difficulty. EXTREMITIES: Lower extremities show deep tendon reflexes 1+ in the patellar and tendo calcaneus tendons. Motor exam is 5 on a scale of 5 with right dorsiflexion, extension, quadriceps and hamstring flexion and 5/5 on the left. Peripheral pulses are 1 posterior tibial. No peripheral edema is noted bilaterally. Lower extremities are warm and dry to touch, equal in color and appearance. Patient's left shoulder shows some significant tenderness in the superior aspect of the trapezius posteriorly also into the medial trapezius and inferior aspect of the trapezius as well as into the suprascapular distribution very firm and tender musculature throughout. Patient shows full rotation motion of the shoulder however without difficulty and without loss of resistance on abduction or abduction. SKIN: Shows warm and dry, good turgor. No edema. No sores, rashes or bruising throughout. Procedure: Procedure: Options discussed with patient. Patient chart was reviewed as her current medication regimen updated current review of systems updated today as well. We instructed patient on some physical therapy type exercises with her left shoulder as well as heat massage therapies and will continue with Voltaren gel on the shoulder as well as Tylenol and and Advil as tolerated up to 3 times daily. Patient understands and agrees and will follow up in approximately 3 weeks as scheduled. Medication Injected: Med Injected: None Condition at Discharge: Condition at Discharge: Condition at discharge is stable. CHRISSEI CARABALLO MD Aug 31, 2021 09:43
== END | disposition home or self-care (01) ==
LOC: PNCL 08:46
PROVIDERS: ATTEND Anesthesiology
DX: M51.16 Intervertebral disc disorders with radiculopathy, lumbar region (principal); G89.29 Other chronic pain; E11.9 Type 2 diabetes mellitus without complications; E03.9 Hypothyroidism, unspecified; M19.90 Unspecified osteoarthritis, unspecified site; F41.9 Anxiety disorder, unspecified; Z98.890 Other specified postprocedural states; Z79.899 Other long term (current) drug therapy
CPT/HCPCS: 99212; G0463

== ENCOUNTER → 2021-12-13 | Outpatient (CLI) | payer MEDICARE ==
[~2021-12-13] MED LIST changes: +DEXAMETHASONE PRES.FREE 10 MG/ML VIAL. ONE; +IOHEXOL 180 MG/ML 10 ML VIAL. ONE
--- NOTE | 2021-12-13 14:14 | PDOC ---
Progress Note - Pain Clinic Date of Service: DOS: DATE: 12/13/21 TIME: 14:13 Diagnosis: Dx: Date of Service: DOS: DATE: 12/13/21 TIME: 13:57 Diagnosis: Dx: Lumbar radiculopathy with lumbar degenerative disc disease History or Present Illness: HPI: 66-year-old female returns with complaints of low back and bilateral lower extremity pain posterior gluteus posterior lateral thigh rating to the lateral anterior thighs and anterior medial lower legs patient reports pain is worse with walking standing changing positions better with sitting or resting. Patient reports no new motor or sensory deficits no bowel or bladder incontinence currently. Patient reports pain is still radiating to the bilateral lower extremities and across the low back somewhat more on the left than the right but present bilaterally. Patient reports is awakening from sleep at least once or twice a night but she has a new sleeping medication that she is taking which helps her sleep fairly significantly. We discussed patient's MRI scan with her once again and she would like to proceed with lumbar epidural steroid injection on her visit today. Patient reports no bowel or bladder incontinence currently. Physical Exam: VS: Blood pressure is 149/96 pulse 90 respirations 18 temperature 98.5 09 5 feet 6 inches weight is 195 pounds. PE: PHYSICAL EXAMINATION: GENERAL: The patient is awake, alert, oriented, appropriate, very pleasant in demeanor HEENT: Shows normocephalic, atraumatic. Extraocular movements are intact and symmetrical. Oral cavity: Mucous membranes moist and pink. Dentition is intact. NECK: Shows anterior throat supple without palpable lymphadenopathy noted. Swallow reflex symmetrical. CHEST: Shows normal on inspection. Breath sounds are clear bilaterally, no rales rhonchi or wheezes auscultated. HEART: Shows S1, S2 clear. No murmurs auscultated. ABDOMEN: Soft, nontender, nondistended. No palpable organomegaly is noted. BACK: Shows spine grossly in the midline. Normal-appearing cervical lordotic curvature. There is mildly increased thoracic kyphosis, some flattening of the lumbar lordotic curvature. Lumbar paraspinous muscles show symmetrical on inspection, on palpation shows some moderate tenderness diffusely throughout the upper, middle and lower distribution of the paraspinous muscles without specific trigger points, without radiation of pain. The patient has good rotational motion of the lumbar spine, both laterally as well as extension and flexion without significant difficulty. No tenderness over the spinous processes, sacrum or sacroiliac regions. EXTREMITIES: Lower extremities show deep tendon reflexes 1+ in the patellar and tendo calcaneus tendons. Motor exam is 5 on a scale of 5 with right dorsiflexion, extension, quadriceps and hamstring flexion and 5/5 on the left. Peripheral pulses are 1+ posterior tibial. No peripheral edema is noted bilaterally. Lower extremities are warm and dry. SKIN: Shows warm and dry, good turgor. No edema. No sores, rashes or bruising throughout. Procedure: Procedure: Risks were discussed including but not limited to: Bleeding, infection, possibility of epidural hematoma and subsequent neurological compromise, dural puncture, headaches, spinal cord and/or nerve damage, side effects of steroid medication, and poor results regarding pain control. Patient understands and wished to proceed.Options discussed with the patient. Patient is alert with use of current medication regimen updated current review of systems updated today as well. We will proceed with a lumbar epidural steroid injection today with fluoroscopic guidance. Risks were discussed including but not limited to: Bleeding, infection, possibility of epidural hematoma and subsequent neurological compromise, dural puncture, headaches, spinal cord and/or nerve damage, side effects of steroid medication and poor results regarding pain control. Patient understands and wished to proceed. Patient will return to clinic in approximately 2 weeks for follow-up, was counseled as to return appointment, activity level, and side effect to be aware of. Medication Injected: Med Injected: Procedure is lumbar epidural steroid injection under local anesthetic using sterile prep and drape at the L4-5 level using C-arm fluoroscopic guidance in both AP and lateral views medications injected is 20 mg dexamethasone +10mL preservative-free normal saline and 2 mL contrast- condition at discharge is stable patient tolerated procedure well had no complications. Condition at Discharge: Condition at Discharge: Condition at discharge is stable, patient tolerated the procedure well and had no complications. CHRISSIE CARABALLO MD Physical Exam: PE: CHRISSIE CARABALLO MD Dec 13, 2021 14:14
--- NOTE | 2021-12-13 14:15 | PDOC4 ---
Procedure Note: ICD 10 Code: ICD 10 Code: ICD 10 Code: ICD 10 Code: M54.16 M51.36 Procedure Note: Patient was consented for lumbar epidural steroid injection with fluoroscopic guidance. Risks were discussed including but not limited to: Bleeding, infection, possibility of epidural hematoma and subsequent neurological compromise, dural puncture, headaches, spinal cord and/or nerve damage, side effects of steroid medication, and poor results regarding pain control. Patient understands and wished to proceed. Procedure is lumbar epidural steroid injection under local anesthetic using sterile prep and drape at the L4-5 level using C-arm fluoroscopic guidance in both AP and lateral views medications injected is 20 mg dexamethasone +10mL preservative-free normal saline and 2 mL contrast- condition at discharge is stable patient tolerated procedure well had no complications. CHRISSIE CARABALLO MD, BRIAN N MD Dec 13, 2021 14:15
== END | disposition home or self-care (01) ==
LOC: PNCL 13:07
PROVIDERS: ATTEND Anesthesiology
DX: M51.16 Intervertebral disc disorders with radiculopathy, lumbar region (principal); J45.909 Unspecified asthma, uncomplicated; M19.90 Unspecified osteoarthritis, unspecified site; E11.9 Type 2 diabetes mellitus without complications; E03.9 Hypothyroidism, unspecified; F41.9 Anxiety disorder, unspecified; Z79.899 Other long term (current) drug therapy; Z98.890 Other specified postprocedural states; Z88.0 Allergy status to penicillin; Z88.1 Allergy status to other antibiotic agents
CPT/HCPCS: 62323; J1100; Q9965

== ENCOUNTER → 2022-02-07 | Outpatient (CLI) | payer MEDICARE ==
[~2022-02-07] MED LIST changes: -DEXAMETHASONE PRES.FREE 10 MG/ML VIAL. ONE; -IOHEXOL 180 MG/ML 10 ML VIAL. ONE
--- NOTE | 2022-02-07 14:42 | RAD ---
BILATERAL SCREENING MAMMOGRAM History: Routine screening. Comparison: Most recently on 01/25/2021. Technique: Routine 2D and 3D tomosynthesis digital mammogram views were obtained bilaterally. Interpr etation was assisted with the use of computer-aided detection. Findings: Breast Tissue Density B : There are scattered areas of fibroglandular density. There are no dominant masses, suspicious microcalcifications, or architectural distortion. Multiple bilateral microcalcifications with benign morphology and distribution again noted. Several asymmetrie s are no different. IMPRESSION: No mammographic evidence of malignancy. Recommend routine screening mammography in one year. BI-RADS category 2: Benign findings. Patient information is entered into the reminder system with a target due date for the next screening mammogram. "Our facility is accredited by the [employer] Mammography Program." Electronically signed by: RONNIE SKY MD (02/07/2022 2:40 PM) [id number]
== END ==
LOC: MAMMO 13:40
PROVIDERS: ATTEND Internal Medicine
DX: Z12.31 Encounter for screening mammogram for malignant neoplasm of breast (principal)
CPT/HCPCS: 77063; 77067